=== PATIENT | male | born 1980 | race Hispanic/Latino ===

== ENCOUNTER 2023-06-11 20:50 | Emergency (ER) | payer OTHER ==
--- OUTSIDE RECORDS SUMMARY | 2023-06-11 20:54 | XMS REPORT | Continuity of Care Document ---
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 STANDARD AETNA 2 [id number] 2022 00:00:00 COMMERCIAL [id number] 2021 NON-CONTRACT 00:00:00 GENERIC Problems Condition Condition Condition Status Onset Resolution Last Treating Co mments Source Name Details Category Date Date Treatment Clinician Date No known No known Disease Unive rs active active ity of problems problems [facility] Allergies, Adverse Reactions, Alerts Allergy Allergy Status Severity Reaction(s) Onset Inactive Treating Comm ents Source Name Type Date Date Clinician NO KNOWN Drug Active Univers ALLERGIE Class ity of S [facility] Social History Social Habit Start Date Stop Date Quantity Comments Source Exposure to 2022-05-24 2022-06-03 Not sure [facility] SARS-CoV-2 (event) 00:00:00 14:48:00 Medica l Branch Sex Assigned At [birth year] [facility] 00:00:00 00:00:00 Medical Branch Smoking Status Start Date Stop Date Source Tobacco smoking consumption [facility] unknown Branch Medications Ordered Filled Start Stop Current Ordering Indication Dosage Frequency Signature Comments Components Source Medication Medication Date Date Medication? Clinician (SIG) Name Name levoFLOXaci 2021- No 750mg 750 mg, U nivers n 06-03 Oral, ONCE ity of (LEVAQUIN) 22:15: 21:22 NOW, 1 [place] tablet 750 [place] :00 dose, On Medic al mg Wed Branch 06/03/22 at 1715, FABIAN
Re ason for Anti-Infec tive: Documented Infection< br>Documen sammie Infection Site: Abdominal< br>Duratio n of Therapy: 7 days metroNIDAZO No 500mg 500 mg, U nivers LE (FLAGYL) 06-03 Oral, ity of tablet 500 21:15: 21:22 ONCE, 1 [place] as mg 00 :00 dose, On Medical Wed Branch 06/03/22 at 1615, FABIAN
Re ason for Anti-Infec tive: Documented Infection< br>Documen sammie Infection Site: Abdominal< br>Duratio n of Therapy: 7 days ondansetron No 4mg 4 mg, Slow Univers (ZOFRAN 06-03 IV Push, ity of (PF)) 21:00: 21:06 ONCE, 1 [place] injection 4 00 :00 dose, On Medi yariel mg Wed Branch 06/03/22 at 1600, FABIAN proMETHazin No 25mg 25 mg, IV Univers e 06-03 Piggyback, ity of (PHENERGAN) 21:00: 21:38 [place] 1 [place] 25 [place] in 00 :00 dose, On Medical NaCl 0.9% [facility] Branch (NS) 50 mL 06/03/22 at piggyback 1600, 50 mL NaCl 0.9% 2021- No 1000mL at 999 Uni vers (NS) bolus 06-03 mL/hr, ity of infusion 21:00: 22:42 1,000 mL, Gabriel as 1,000 mL 00 :00 IV Medical Infusion, Branch ONCE, 1 dose, On Wed06/03/22 at 1600, STAT ciprofloxac Yes [id number] 500mg Take 1 Univers in HCl 500 8-17 tablet by ity of mg tablet 00:00: mouth in [facility] 00 the Medical morning Branch and 1 tablet in the evening. metroNIDAZO Yes [id number] 500mg Take 1 Univers LE 500 mg 8-17 tablet by ity o f tablet 00:00: mouth in [place] 00 the Medical morning Branch and 1 tablet in the evening. proMETHazin Yes [id number] 25mg Take 1 Univers e 25 mg 8-17 tablet by ity of tablet 00:00: mouth [place] 00 every 6 Medical (six) Branch hours as needed for Nausea and Vomiting (N/V). Vital Signs Vital Name Observation Time Observation Value Comments Source Systolic blood 2022-06-03 22:44:00 154 mm[Hg] [facility] Diastolic blood 2022-06-03 22:44:00 89 mm[Hg] [facility] Heart rate 2022-06-03 22:44:00 75 /min [facility] Respiratory rate 2022-06-03 22:44:00 18 /min [facility] Oxygen saturation in 2022-06-03 22:44:00 99 /min [facility] Arterial blood by [facility] Pulse oximetry [place] Body temperature 2022-06-03 19:49:00 37.22 [facility] Body weight 2022-06-03 19:49:00 113.399 kg [facility] Procedures Procedure Date / Time Performed Performing Clinician Sour e ASSIGNMENT OF BENEFITS 2022-06-03 20:55:17 Doctor Unassigned, No [facility] COMP. METABOLIC PANEL 2022-06-03 20:19:00 Eri Pryor [facility] ([id number]) [facility] CBC WITH DIFF 2022-06-03 20:19:00 Eri Pryor [facility] COVID-19 (ID NOW RAPID 2022-06-03 20:19:00 Eri Pryor [facility] TESTING) [facility] NOTICE OF PRIVACY 2022-06-03 19:46:16 Doctor Unassigned, No Univ [facility] PRACTICES Name [facility] CONSENT/REFUSAL FOR 2022-06-03 19:45:21 Doctor Unassigned, No Un [facility] DIAGNOSIS AND Name Medical Branch TREATMENT Encounters Start End Encounter Admission Attending Care Care Encounter Source Date/Time Date/Time Type Type Clinicians Facility Department ID 2022-12-09 2022-12-09 Outpatient SUSAN VALVERDE [id number] Sade 14:00:00 14:00:00 Fannie JHAVERI 2022-11-25 2022-11-25 Outpatient DEL SADE VALVERDE [id number] Sade 14:20:00 14:20:00 Fannie JHAVERI FEBRUARY 2022-11-25 2022-11-25 Outpatient TRED47 SADE VALVERDE [id number] Sade 11:00:00 11:00:00 Seybol d 2022-11-18 2022-11-18 Outpatient TRED47 SADE VALVERDE [id number] Sade 11:00:00 11:00:00 Seybol d 2022-11-04 2022-11-04 Outpatient TRED76 SADE VALVERDE [id number] Sade 11:00:00 11:00:00 Seybol d 2022-10-28 2022-10-28 Outpatient TRED76 SADE VALVERDE [id number] Sade 14:00:00 14:00:00 Seybol d 2022-10-28 2022-10-28 Outpatient DEL SADE VALVERDE [id number] Sade 13:40:00 13:40:00 Fannie JHAVERI FEBRUARY 2022-06-03 2022-06-03 [facility] [id number] Univers 14:49:00 17:44:00 ERI ity [facility] 2022-06-03 2022-06-03 [facility] [id number] Univers 14:49:00 17:44:00 Eri [address]ARD[id number] [facility] [id number] [facility] [id number] Results Test Description Test Time Test Comments Results Result Comments Source CBC WITH DIFF 2022-06-03 21:27:40 Test Item Value Reference Range Interpretation Comme nts WBC (test code = 6690-2) See_Comment H [A utomated message] The system which ge nerated this result transmit sammie reference range: 4.20 - 1 0.70 10*3/?L. The reference r ene was not used to interpr et this result as normal/abnor mal. RBC (test code = 789-8) See_Comment [Au tomated message] The system which ge nerated this result transmit sammie reference range: 4.26 - 5 .52 10*6/?L. The reference r ene was not used to interpr et this result as normal/abnor mal. HGB (test code = 718-7) 14.8 g/dL 12.2-16.4 HCT (test code = 4544-3) 42.6 % 38.4-49.3 MCV (test code = 787-2) 83.4 fL 81.7-95.6 MCH (test code = 785-6) 29.0 pg 26.1-32.7 MCHC (test code = 786-4) 34.7 g/dL 31.2-35 RDW-SD (test code = 51721-7) 38.8 fL 38.5-51.6 RDW-CV (test code = 788-0) 12.8 % 12.1-15.4 PLT (test code = 777-3) See_Comment [Au tomated message] The system which ge nerated this result transmit sammie reference range: 150 - 32 8 10*3/?L. The reference range was not used to interpret th is result as normal/abnormal . MPV (test code = 64349-0) 10.6 fL 9.8-13 NRBC/100 WBC (test code = See_Comment [ Automated message] The 8752100231) system which Tesaris nerated this result transmit sammie reference range: 0.0 - 10 .0 /100 WBCs. The reference r ene was not used to interpr et this result as normal/abnor mal. NRBC x10^3 (test code = See_Comment [Au tomated message] The 5313452130) system which Tesaris nerated this result transmit sammie reference range: 10*3/?L. The reference range was not u sed to interpret this result as normal/abnormal . SEG % (test code = 80881-8) 43 % 33-76 BAND % (test code = 70570-3) 3 % 0-1 H LYMPH % (test code = 23 % 14-54 63249-0) MONO % (test code = 51908-7) 4 % 0-4 EOS % (test code = 09783-3) 27 % 0-3 H ANC (test code = 753-4) 6.79 10*3/uL 1.99-6.95 Lab Interpretation (test Abnormal code = 77898-2) [facility]. METABOLIC PANEL (06432)2022-06-03 20:43:12 Test Item Value Reference Range Interpretation Comments NA (test code = 140 mmol/L 135-145 [id number]) K (test code = 3.6 mmol/L 3.5-5 2663547178) CL (test code = 104 mmol/L 98-108 5290964821) CO2 TOTAL (test code = 26 mmol/L 23-31 8099467583) AGAP (test code = 2-16 1824977347) BUN (test code = 12 mg/dL 7-23 5237437480) GLUCOSE (test code = 118 mg/dL 70-110 H 4098998589) CREATININE (test code = 0.96 mg/dL 0.6-1.25 5474505268) TOTAL BILI (test code = 0.7 mg/dL 0.1-1.9 3716565591) CALCIUM (test code = 9.0 mg/dL 8.6-10.6 3155151512) T PROTEIN (test code = 7.2 g/dL 6.3-8.2 2185974204) ALBUMIN (test code = 4.5 g/dL 3.5-5 8796557905) ALK PHOS (test code = 71 U/L 34-122 9697046056) ALTv (test code = 43 U/L 5-50 1742-6) AST(SGOT) (test code = 30 U/L 13-40 4834660515) eGFR (test code = mL/min/1.73m2 9698850013) JAZMIN (test code = JAZMIN) Association of Glomerular Filtration Rate (GFR) and Staging of Kidney Disease* + --+ --+ ------+| GFR (mL/min/1.73 m2) ?| With Kidney Damage ?| ?Without Kidney Damage+ --------+ --------+ +| ?>90 ?| ?Stage one ?| ? Normal ?+ ---+ ---+ -------+| ?60-89 ?| ?Stage two ?| ? Decreased GFR ? + --+ --+ ------+| ?30-59 ?| ?Stage three ?| ? Stage three ? + --+ --+ ------+| ?15-29 ?| ?Stage four ? | ? Stage four ?+ ---+ ---+ -------+| ?<15 (or dialysis) ? ?| ?Stage five ? | ? Stage five ?+ ---+ ---+ -------+ *Each stage assumes the associated GFR level has been in effect for at least three months. ?Stages 1 to 5, with or without kidney disease, indicate chronic kidney disease. Notes: Determination of stages one and two (with eGFR >59mL/min/1.73 m2) requires estimation of kidney damage for at least three months as defined by structural or functional abnormalities of the kidney, manifested by either:Pathological abnormalities or Markers of kidney damage (including abnormalities in the composition of the blood or urine or abnormalities in imaging tests). Lab Interpretation Abnormal (test code = 76785-0) [facility]"
--- NOTE | 2023-06-11 22:14 | RAD REPORT ---
EXAM DESCRIPTION: Mona Single View06/11/2023 9:54 pm CLINICAL HISTORY: Chest pain COMPARISON: none FINDINGS: The lungs appear clear of acute infiltrate. The heart is normal size IMPRESSION: No acute abnormalities displayed
[2023-06-11] MEDS ORDERED: ASPIRIN 81 MG CHEWABLE TABLET ONE (22:39)
[2023-06-11 22:49] LABS: Absolute Lymphocytes (CBC) 3.3 K/uL (0.7-4.9); Hematocrit 44.4 % (39.6-49.0); MCV 84.3 fL (80-100); MPV 8.6 fL (7.6-11.3); Platelets 279 thou/uL (152-406); RBC Red Blood Cell Count 5.27 M/uL (4.33-5.43)
[2023-06-11 23:09] LABS: Albumin 3.8 g/dL (3.4-5.0); Bilirubin Direct 0.1 mg/dL (0-0.2); Bilirubin Indirect, Calculated 0.6 mg/dL (0.2-0.8); Bilirubin Total 0.7 mg/dL (0.2-1.0); Magnesium 2.2 mg/dL (1.6-2.4); Potassium 3.3 mEq/L (3.5-5.1); Troponin High Sensitivity 30.3 pg/mL (<58.9)
--- NOTE | 2023-06-12 02:43 | EDPHYS ---
Physician Documentation [facility] Name: Jackson Medrano Jr Age: 42 yrs Sex: Male : 1980 Arrival Date: 06/11/2023 Time: 20:50 Bed 17 Private MD: ED Physician Pedro Bourne HPI: 06/12 00:49 This 42 yrs old Male presents to ER via Ambulatory with complaints of Chest kb Pain, Chest Tightness, Numbness Of Mouth, Numbness Of Arm, Headache. 00:49 The patient or guardian reports chest pain that is located primarily in the anterior kb chest wall, left. Onset: yesterday. The pain radiates to the left arm. Associated signs and symptoms: Pertinent positives: nausea, shortness of breath. The chest pain is described as dull. Duration: The patient or guardian reports a single episode. Modifying factors: The symptoms are alleviated by nothing. the symptoms are aggravated by nothing. Severity of pain: At its worst the pain was moderate in the emergency department the pain has improved. The patient has not experienced similar symptoms in the past. The patient has not recently seen a physician. Historical: - Allergies: 06/11 21:18 No Known Allergies; vc1 - Home Meds: 21:18 sertraline 50 mg oral tablet daily [Active]; vc1 - PMHx: 21:18 Asthma; Depressive disorder; vc1 - PSHx: 21:18 None; vc1 - Immunization history:: Client reports receiving the 2nd dose of the Covid vaccine. - Social history:: Smoking status: Patient denies any tobacco usage or history of. ROS: 06/12 00:49 Constitutional: Negative for fever, chills, and weight loss. kb Cardiovascular: Positive for chest pain, of the anterior aspect of left upper chest. All other systems are negative. Exam: 00:45 Constitutional: This is a well developed, well nourished patient who is awake, alert, kb and in no acute distress. Head/Face: Normocephalic, atraumatic. ENT: Moist Mucous membranes Cardiovascular: Regular rate and rhythm with a normal S1 and S2. No gallops, murmurs, or rubs. No pulse deficits. Respiratory: Respirations even and unlabored. No increased work of breathing. Talking in full sentences Abdomen/GI: Soft, non-tender. No distention Skin: Warm, dry with normal turgor. Normal color. MS/ Extremity: Pulses equal, no cyanosis. Neurovascular intact. Full, normal range of motion. Neuro: Awake and alert, GCS 15, oriented to person, place, time, and situation. Moves all extremities. Normal gait. Vital Signs: 06/11 21:17 Weight 115.67 kg; Height 5 ft. 4 in. ; Pain 5/10; vc1 21:19 BP 150 / 106; Pulse 72; Resp 17; Temp 99.1; Pulse Ox 98% ; vc1 23:15 BP 129 / 78; Pulse 62; Resp 17 S; Pulse Ox 98% on R/A; ha1 06/12 00:00 BP 120 / 73; Pulse 59; Resp 17 S; Pulse Ox 98% on R/A; ha1 06/11 21:17 Body Mass Index 43.77 (115.67 kg, 162.56 cm) vc1 06/11 21:17 Pain Scale: Adult vc1 MDM: 06/11 21:19 Patient medically screened. kb 06/12 00:49 Data reviewed: vital signs, nurses notes. kb 00:50 Differential diagnosis: abnormal EKG, acute myocardial infarction, anxiety, coronary kb artery disease chest wall pain. The patient was given aspirin in the Emergency Department. 02:41 Consideration of Admission/Observation Escalation of care including kb admission/observation considered. admission considered for chest pain, but serial troponin wnl, HEART score 1.. Counseling: I had a detailed discussion with the patient and/or guardian regarding the historical points, exam findings, and any diagnostic results supporting the discharge/admit diagnosis, lab results, radiology results, the need for outpatient follow up, a family practitioner, to return to the emergency department if symptoms worsen or persist or if there are any questions or concerns that arise at home. 06/11 21: Order name: Basic Metabolic Panel; Complete Time: 23:09 kb 06/11 21: Order name: CBC with Diff; Complete Time: 22:59 kb 06/11 21: Order name: LFT's; Complete Time: 23:09 kb 06/11 21: Order name: Magnesium; Complete Time: 23:09 kb 06/11 21: Order name: NT PRO-BNP; Complete Time: 23:09 kb 08/25 21:26 Order name: Troponin HS; Complete Time: 23:09 kb 06/12 00:45 Order name: Troponin High Sensitivity; Complete Time: 02:41 kb 06/11 21: Order name: XRAY Chest (1 view); Complete Time: 22:15 kb 06/11 21: Order name: EKG; Complete Time: 21:28 kb 06/11 21: Order name: Cardiac monitoring; Complete Time: 22:24 kb 06/11 21: Order name: EKG - Nurse/Tech; Complete Time: 22:24 kb 06/11 21: Order name: IV Saline Lock; Complete Time: 22:41 kb 06/11 21: Order name: Labs collected and sent; Complete Time: 22:41 kb 06/11 21: Order name: O2 Per Protocol; Complete Time: :41 kb 06/11 21: Order name: O2 Sat Monitoring; Complete Time: 22:41 kb Administered Medications: 06/11 22: Drug: Aspirin PO Chewable Tablet 324 mg Route: PO; ha1 Disposition: 06/12 02:27 Co-signature as Attending Physician, Pedro Bourne MD I agree with the assessment sp4 and plan of care. I reviewed the patient's care provided by the Advanced Practice Provider and agree with the diagnosis and treatment plan. Disposition Summary: 06/12/23 02:42 Discharge Ordered Location: Home kb Condition: Stable kb Diagnosis - Chest pain, unspecified kb Followup: kb - With: Emergency Department - When: As needed - Reason: Worsening of condition Followup: kb - With: Private Physician - When: 2 - 3 days - Reason: Recheck today's complaints, Continuance of care, Re-evaluation by your physician Discharge Instructions: - Discharge Summary Sheet kb - Nonspecific Chest Pain, Adult, [id number] kb Forms: - Medication Reconciliation Form kb - Thank You Letter kb - Antibiotic Education kb - Prescription Opioid Use kb - Patient Portal Instructions kb - Leadership Thank You Letter kb Signatures: Dispatcher [employer] Viviana Gonsales FNP-C FNP-Ckb Calcote, Vanessa RN RN 1 Karen Montgomery RN RN ha1 Pedro Bourne MD MD sp4
--- NOTE | 2023-06-12 02:43 | ER ---
Nurse's Notes [facility] Name: Jackson Medrano Jr Age: 42 yrs Sex: Male : 1980 Arrival Date: 06/11/2023 Time: 20:50 Bed 17 Private MD: Diagnosis: Chest pain, unspecified Presentation: 06/11 21:17 Chief complaint: Patient states: I'm having chest pain that started last night and vc1 radiating down the left arm and to the left side of my back. Coronavirus screen: Vaccine status: Patient reports receiving the 2nd dose of the covid vaccine. Moderna Client denies travel out of the [place] in the last 14 days. At this time, the client does not indicate any symptoms associated with coronavirus-19. Ebola Screen: Patient negative for fever greater than or equal to 101.5 degrees Fahrenheit, and additional compatible Ebola Virus Disease symptoms Patient denies exposure to infectious person. Patient denies travel to an Ebola-affected area in the 21 days before illness onset. No symptoms or risks identified at this time. Risk Assessment: Do you want to hurt yourself or someone else? Patient reports no desire to harm self or others. Onset of symptoms was June 10, 2023. 21:17 Method Of Arrival: Ambulatory vc1 21:17 Acuity: VARGHESE 3 vc1 06/12 03:08 Initial Sepsis Screen: Does the patient meet any 2 criteria? No. Patient's initial ha1 sepsis screen is negative. Does the patient have a suspected source of infection? No. Patient's initial sepsis screen is negative. Historical: - Allergies: 06/11 21:18 No Known Allergies; vc1 - Home Meds: 21:18 sertraline 50 mg oral tablet daily [Active]; vc1 - PMHx: 21:18 Asthma; Depressive disorder; vc1 - PSHx: 21:18 None; vc1 - Immunization history:: Client reports receiving the 2nd dose of the Covid vaccine. - Social history:: Smoking status: Patient denies any tobacco usage or history of. Screenin/26 03:06 [facility] ED Fall Risk Assessment (Adult) History of falling in the last 3 months, ha1 including since admission No falls in past 3 months (0 pts) Confusion or Disorientation No (0 pts) Intoxicated or Sedated No (0 pts) Impaired Gait No (0 pts) Mobility Assist Device Used No (0 pt) Altered Elimination No (0 pt) Score/Fall Risk Level 0 - 2 = Low Risk Oriented to surroundings, Maintained a safe environment, Educated pt \T\ family on fall prevention, incl call for assistance when getting out of bed. Abuse screen: Denies threats or abuse. Denies injuries from another. Nutritional screening: No deficits noted. Tuberculosis screening: No symptoms or risk factors identified. Assessment: 06/11 22:00 General: Appears comfortable, Behavior is calm, cooperative. Pain: Complains of pain in ha1 chest Pain does not radiate. Pain currently is 7 out of 10 on a pain scale. Quality of pain is described as pressure, Pain began 1 day ago. Neuro: Level of Consciousness is awake, alert, obeys commands, Oriented to person, place, time, situation. 22:00 Cardiovascular: Reports chest pain, Heart tones S1 S2 present Capillary refill < 3 ha1 seconds Patient's skin is warm and dry. Rhythm is sinus rhythm. Respiratory: Airway is patent Respiratory effort is even, unlabored, Respiratory pattern is regular, symmetrical. 23:00 Reassessment: Patient and/or family updated on plan of care and expected duration. Pain ha1 level reassessed. Patient is alert, oriented x 3, equal unlabored respirations, skin warm/dry/pink. Patient denies pain at this time. Patient states feeling better. Patient states symptoms have improved. 06/12 00:00 Reassessment: Patient and/or family updated on plan of care and expected duration. Pain ha1 level reassessed. Patient is alert, oriented x 3, equal unlabored respirations, skin warm/dry/pink. 01:00 Reassessment: Patient and/or family updated on plan of care and expected duration. Pain ha1 level reassessed. Patient is alert, oriented x 3, equal unlabored respirations, skin warm/dry/pink. 02:00 Reassessment: Patient and/or family updated on plan of care and expected duration. Pain ha1 level reassessed. Patient is alert, oriented x 3, equal unlabored respirations, skin warm/dry/pink. Patient denies pain at this time. 03:00 Reassessment: Patient and/or family updated on plan of care and expected duration. Pain ha1 level reassessed. Patient is alert, oriented x 3, equal unlabored respirations, skin warm/dry/pink. Patient denies pain at this time. Patient states feeling better. Vital Signs: 06/11 21:17 Weight 115.67 kg; Height 5 ft. 4 in. ; Pain 5/10; vc1 21:19 BP 150 / 106; Pulse 72; Resp 17; Temp 99.1; Pulse Ox 98% ; vc1 23:15 BP 129 / 78; Pulse 62; Resp 17 S; Pulse Ox 98% on R/A; ha1 06/12 00:00 BP 120 / 73; Pulse 59; Resp 17 S; Pulse Ox 98% on R/A; ha1 06/11 21:17 Body Mass Index 43.77 (115.67 kg, 162.56 cm) vc1 06/11 21:17 Pain Scale: Adult vc1 ED Course: 06/11 20:56 Patient arrived in ED. jj6 21:18 Triage completed. vc1 21:19 Viviana Brink FNP-C is PHCP. kb 21:19 Pedro Bourne MD is Attending Physician. kb 21:19 Arm band placed on left wrist. vc1 21:19 EKG done, by ED staff. vc1 21:56 XRAY Chest (1 view) In Process Unspecified. EDMS 22:00 Client placed on continuous cardiac and pulse oximetry monitoring. NIBP monitoring ha1 applied. 22:23 Karen Montgomery, RN is Primary Nurse. ha1 22:30 Inserted saline lock: 20 gauge in right forearm, using aseptic technique. ha1 22:41 Basic Metabolic Panel Sent. ha1 22:41 CBC with Diff Sent. ha1 22:41 LFT's Sent. ha1 22:41 Magnesium Sent. ha1 22:41 NT PRO-BNP Sent. ha1 22:41 Troponin HS Sent. ha1 22:50 Patient has correct armband on for positive identification. Fall risk band placed. ha1 Placed in gown. Bed in low position. Call light in reach. 06/12 03:07 No provider procedures requiring assistance completed. IV discontinued, intact, ha1 bleeding controlled, No redness/swelling at site. Pressure dressing applied. Patient maintains SpO2 saturation greater than 95% on room air. 03:08 Provided Education on: follow up with PCP. ha1 Administered Medications: 06/11 22:25 Drug: Aspirin PO Chewable Tablet 324 mg Route: PO; ha1 Medication: 06/12 03:08 VIS not applicable for this client. ha1 Outcome: 02:42 Discharge ordered by . shana 03:08 Discharged to home ambulatory. ha1 03:08 Condition: stable 03:08 Discharge instructions given to patient, Instructed on discharge instructions, follow up and referral plans. Demonstrated understanding of instructions, follow-up care. 03:12 Patient left the ED. ha1 Signatures: Dispatcher [employer] EDMD Viviana Brink, MARCIEC NUT FORMER-Paige Mckeon jj6 Paty Torres RN RN vc1 Karen Montgomery RN RN ha1
[2023-06-12 03:36] VITALS: TEMP 99.1; O2SAT 98
[2023-06-12 03:39] VITALS: BP 120/73
--- NOTE | 2023-06-13 15:08 | EKG ---
Test Date: 2023-06-11 Test Time: 21:14:18 Shuttle Car Operator: COURTNEY MEASUREMENT RESULTS: Intervals: Rate: 77 MA: 138 QRSD: 102 QT: 394 QTc: 445 [place]: P: 44 MA: 138 QRS: 4 T: 52 INTERPRETIVE STATEMENTS: Normal sinus rhythm Normal ECG No previous ECG available for comparison Electronically Signed On 06-13-23 15:06:02 CDT by Shaan Jones
== END 2023-06-12 03:12 | disposition home or self-care (01) ==
LOC: ER 20:50
DX: R07.89 Other chest pain (principal); F32.A Depression, unspecified; J45.909 Unspecified asthma, uncomplicated
CPT/HCPCS: 36415; 71045; 80048; 80076; 83735; 83880; 84484; 85025; 93005; 99284